=== PATIENT | female | born 1995 | race Caucasian/White ===

== ENCOUNTER 2022-11-12 14:19 | Outpatient (CLI) | payer BC ==
[2022-11-12] MEDS ORDERED: LACTATED RINGERS 1,000 ML IV ONE (14:45)
--- NOTE | 2022-11-12 15:28 | US ---
EXAMINATION TYPE: US OB BPP wo non-stress DATE OF EXAM: 11/12/2022 COMPARISON: NONE CLINICAL INDICATION: Female, 27 years old with history of nonreactive NST; nonreactive NST TECHNIQUE: Transabdominal (TA). Scoring by the burr sander during real-time assessment. FINDINGS: BPP PARAMETERS: PRESENTATION: Vertex LIE: Longitudinal?? HEART RATE: 143 bpm RHYTHM: Normal ELKE: 17.3 DIAPHRAGM IMAGED: wnl BPP SCORIN. Breathin (1 episode of breathing of 30 second duration in 30 minutes of scanning time) 2. Movement: 2 (at least 3 discrete body movements in 30 minutes) 3. Tone: 2 (1 episode of active flexion/extension of limb) 4. ELKE: 2 (ELKE index > 5cm) Single live intrauterine gestation. IMPRESSION: TOTAL SCORE: 8 / 8
[2022-11-12 17:12] VITALS: BP 132/71; PULSE 81; RESP 16; TEMP 97.4
== END 2022-11-12 15:55 | disposition home or self-care (01) ==
LOC: FBPOP 14:19
PROVIDERS: ATTEND Obstetrics & Gynecology
DX: Z36.83 Encounter for fetal screening for congenital cardiac abnormalities (principal)
CPT/HCPCS: 59025; 76819; 96360; 99214

== ENCOUNTER 2022-11-19 06:00 | Inpatient (IN) | payer BC ==
[2022-11-19] MEDS ORDERED: OXYTOCIN 10 UNIT/ML 1 ML VIAL IM PRN (06:43)
[2022-11-19] MEDS ORDERED: TERBUTALINE 1 MG/ML VIAL SQ PRN (06:43)
[2022-11-19] MEDS ORDERED: METHYLERGONOVINE 0.2 MG/ML 1 ML AMP IM PRN (06:43)
[2022-11-19] MEDS ORDERED: TRANEXAMIC 1,000 MG/100ML-NACL 1,000 MG in EMPTY BAG 1 BAG IV PRN (06:43)
[2022-11-19] MEDS ORDERED: CARBOPROST TROMETHAMINE 250 MCG/ML 1 ML AMP IM PRN (06:43)
[2022-11-19] MEDS ORDERED: LIDOCAINE 0.5% (PF) 5 MG/ML (50 ML SDV) SQ PRN (06:43)
[2022-11-19] MEDS ORDERED: miSOPROStoL 200 MCG TAB PO PRN (06:43)
[2022-11-19] MEDS ORDERED: OXYTOCIN 30 UNITS/500 ML NS 30 UNIT in SALINE 1 500ML.BAG IV SCH ×2 (06:45→17:00)
[2022-11-19] MEDS: LACTATED RINGERS 1,000 ML IV SCH ×2 (07:05→12:25)
[2022-11-19 07:13] LABS: Basophils % (A) 0 %; Eosinophils # (A) 0.1 k/uL (0-0.7); Eosinophils % (A) 1 %; HCT 35.9 % (34.0-46.0); HGB 12.8 gm/dL (11.4-16.0); Lymphocytes # (A) 2.2 k/uL (1.0-4.8); Lymphocytes % (A) 20 %; MCH 35.2 pg (25.0-35.0); MCHC 35.6 g/dL (31.0-37.0); MCV 98.9 fL (80.0-100.0); Mean Platelet Volume 8.5; Monocytes # (A) 0.4 k/uL (0-1.0); Monocytes % (A) 4 %; Neutrophils % (A) 74 %; Platelet Count 192 k/uL (150-450); RBC 3.63 m/uL (3.80-5.40); RDW 12.8 % (11.5-15.5); WBC 10.8 k/uL (3.8-10.6)
[2022-11-19] MEDS ORDERED: NALBUPHINE 10 MG/ML (10 ML MDV) IV PRN (08:50)
--- NOTE | 2022-11-19 08:55 | P.HPOB ---
History of Present Illness H&P Date: 11/19/22 Chief Complaint: 39-5/7 weeks, IUGR, induction The patient is a 27-year-old 2 para 0010 admitted at 39-5/7 weeks as established by last Mester. And confirmed by 9 week ultrasound. She is admitted for induction of labor secondary to a diagnosis of symmetric IUGR with all signs reassuring, category 1 heart rate tracing at this time. Her was initially complicated by ultrasound finding of bilateral clubbed feet and some cerebellar findings for which she was sent to maternal medicine in the cerebellar findings were dismissed but the findings of bilateral clubfeet were confirmed. She was found in the third trimester to have symmetric IUGR and was thought to have a potentially constitutionally small baby. She has undergone twice weekly testing which is been reassuring throughout. Group B strep status is negative. Obstetrical history: 2 para 0010 with 1 early loss. Current statistics are listed in history of present illness. EDC of 11/21/2022 was established by last menstrual period and confirmed by 9 week ultrasound. Laboratory workup demonstrates a blood type of O+ with a negative antibody screen. Rubella status is immune. The remainder of laboratory workup was within normal limits. One hour Glucola was normal and group B strep status is negative. Gynecologic history: Unremarkable with no history of any infections to include STDs. Review of Systems Review of systems is confined to history of present illness. Past Medical History Past Medical History: No Reported History History of Any Multi-Drug Resistant Organisms: None Reported Past Surgical History: No Surgical Hx Reported Past Anesthesia/Blood Transfusion Reactions: No Reported Reaction Past Psychological History: No Psychological Hx Reported Smoking Status: Never smoker Past Alcohol Use History: None Reported Past Drug Use History: None Reported - Past Family History Sister(s) Additional Family Medical History / Comment(s): Heart Murmer Medications and Allergies Home Medications Medication Instructions Recorded Confirmed Type No Known Home Medications 11/12/22 11/19/22 History Allergies Allergy/AdvReac Type Severity Reaction Status Date / Time No Known Allergies Allergy Verified 11/12/22 14:25 Exam Vital Signs Temp Pulse Resp BP Pulse Ox 11/19/22 06:40 97.2 F L 79 16 122/69 99 Intake and Output 11/18/22 11/19/22 11/19/22 22:59 06:59 14:59 Other: Weight 70.76 kg General, this is a well-developed, well-nourished white female in no acute distress. Her heart has a regular rhythm and rate without murmur. Her lungs clear to auscultation bilaterally in all sanchez. Her abdomen is gravid, nondistended, has normal active bowel sounds, soft, nontender, and without any palpable masses aside from uterine fundus. Her extremities are without any cyanosis, clubbing, or edema and are nontender to palpation bilaterally. Digital cervical examination demonstrates her cervix to be 2 cm dilated, 50% effaced, with the vertex in presentation at -2 station. Artificial rupture of membranes is carried out demonstrating light meconium-stained fluid. Results Result Diagrams: 11/19/22 07:00 Abnormal Lab Results - Last 24 Hours (Table) 11/19/22 Range/Units 07:00 WBC 10.8 H (3.8-10.6) k/uL RBC 3.63 L (3.80-5.40) m/uL MCH 35.2 H (25.0-35.0) pg Neutrophils # 8.0 H (1.3-7.7) k/uL Assessment and Plan (1) Term Current Visit: Yes Status: Acute Code(s): Z34.90 - ENCNTR FOR SUPRVSN OF NORMAL , UNSP, UNSP TRIMESTER SNOMED Code(s): 22498719 (2) Intrauterine growth retardation in Current Visit: Yes Status: Acute Code(s): O36.5990 - MATERN CARE FOR OTH OR SUSP POOR FETL GRTH, UNSP TRI, UNSP SNOMED Code(s): 848449423 Plan: The patient is admitted for induction of labor and Pitocin has been started. She has undergone artificial rupture of membranes. She will have close maternal and surveillance and expectant management will be practiced. She is a good candidate for either IV or epidural analgesia, whichever she may choose.
[2022-11-19] MEDS ORDERED: HYDROcodone/APAP 7.5-325MG 1 EACH TAB PO PRN (16:57)
[2022-11-19] MEDS ORDERED: ACETAMINOPHEN TAB 325 MG TAB PO PRN (16:57)
[2022-11-19] MEDS ORDERED: HYDROcodone/APAP 5-325MG 1 EACH TAB PO PRN (16:57)
[2022-11-19] MEDS ORDERED: LANOLIN CREAM 5 GM TUBE TOPICAL PRN (16:57)
[2022-11-19] MEDS ORDERED: diphenhydrAMINE 25 MG CAP PO PRN (16:57)
[2022-11-19] MEDS ORDERED: HYDROCORTISONE 2.5% RECTAL CREAM 30 GM TUBE RECTAL PRN (16:57)
[2022-11-19] MEDS ORDERED: diphenhydrAMINE 50 MG/ML 1 ML VIAL IVP PRN ×2 (16:57)
[2022-11-19] MEDS ORDERED: diphenhydrAMINE 50 MG CAP PO PRN (16:57)
[2022-11-19] MEDS ORDERED: ZOLPIDEM 5 MG TAB PO PRN (16:57)
[2022-11-19] MEDS ORDERED: SIMETHICONE 80 MG CHEWABLE PO PRN (16:57)
[2022-11-19] MEDS ORDERED: BENZOCAINE/MENTHOL SPRAY 1 GM/SPRAY AEROSOL TOPICAL PRN (16:57)
--- NOTE | 2022-11-19 17:03 | P.PROBDLV ---
Vaginal Delivery Note - . Vaginal Delivery Note: The patient is a 27-year-old 2 para 0010 admitted at 39-5/7 weeks by good dating parameters perches admitted for induction of labor with a diagnosis of intrauterine growth restriction, symmetric, with all signs reassuring, category 1 heart rate tracing on labor and delivery. She does have periods of absent variability which is been followed by accelerations. Her was complicated initially by findings at her 20 week ultrasound of bilateral clubfeet as well as some concerns with the cerebellum, possibly some heart issues and some potential renal findings. She was sent for maternal medicine consultation and the latter 3 were dispelled. She did undergo amniocentesis which demonstrated normal chromosomal findings. testing from the time of the diagnosis of IUGR was reassuring on a twice weekly basis. On labor and delivery, she had Pitocin started followed by artificial rupture of membranes for moderate meconium-stained fluid. She made progress to the active phase of labor at which time an epidural catheter was placed for analgesia. She then made steady progress throughout the active phase to complete and pushed over the course of approximately 15-20 minutes to a viable 5 lbs. 2 oz. baby girl with Apgars of 3 at 1 minute, 7 at 5 minutes, and 9 at 10 minutes. The placenta was delivered spontaneously, intact, and grossly normal although it was meconium-stained. There was extraordinarily short roughly centrally inserted three-vessel cord. There were no lacerations of the perineum, vagina, or cervix. Estimated blood loss for the case was approximately 200 mL. There were no complications. Bilateral clubfeet was in evidence. Both mother and are resting comfortably in recovery though the has been taken to the nursery secondary to the initial issues with respiration and tone.
[2022-11-19] MEDS: SENNOSIDES-DOCUSATE SODIUM 1 EACH TAB PO SCH (20:46)
[2022-11-19] MEDS: IBUPROFEN 600 MG TAB PO PRN (20:46)
[2022-11-20] MEDS: IBUPROFEN 600 MG TAB PO PRN ×3 (05:31→20:43)
[2022-11-20 06:45] LABS: Basophils # (A) 0.1 k/uL (0-0.2); Basophils % (A) 1 %; Eosinophils # (A) 0.1 k/uL (0-0.7); Eosinophils % (A) 1 %; HCT 32.4 % (34.0-46.0); HGB 11.5 gm/dL (11.4-16.0); Lymphocytes # (A) 2.2 k/uL (1.0-4.8); Lymphocytes % (A) 16 %; MCH 35.8 pg (25.0-35.0); MCHC 35.5 g/dL (31.0-37.0); Macrocytosis Slight; Mean Platelet Volume 8.6; Monocytes # (A) 0.6 k/uL (0-1.0); Monocytes % (A) 4 %; Neutrophils # (A) 10.7 k/uL (1.3-7.7); Neutrophils % (A) 78 %; Platelet Count 166 k/uL (150-450); RDW 12.9 % (11.5-15.5); WBC 13.8 k/uL (3.8-10.6)
[2022-11-20] MEDS: SENNOSIDES-DOCUSATE SODIUM 1 EACH TAB PO SCH ×2 (07:46→20:43)
--- NOTE | 2022-11-20 08:13 | P.DS ---
Providers Date of admission: 11/19/22 06:30 Expected date of discharge: 11/20/22 Attending physician: Nabil Negrete Primary care physician: Stated None - Discharge Diagnosis(es) (1) Term Current Visit: Yes Status: Acute (2) Intrauterine growth retardation in Current Visit: Yes Status: Acute (3) Normal spontaneous vaginal delivery Current Visit: Yes Status: Acute Hospital Course: The patient is a 27 year 2 para 0010 admitted at 39-5/7 weeks by good dating parameters. She is admitted for induction of labor secondary to a diagnosis of IUGR. On admission, all signs reassuring with a category 1 heart rate tracing though she has had periods of significant lack of variability on NST over the last 1-2 weeks. was initially [place] by ultrasonic findings at her anatomy ultrasound of bilateral clubfeet as well as some cerebellar changes, possible heart concerns, and possible renal concerns. The last 3 settings were dismissed by maternal medicine. She was then found in the third trimester to have the baby in the growth category of intrauterine growth restriction. She underwent twice weekly testing which was reassuring throughout the third trimester until the above lack of variability presented at approximately 38 weeks at which time she continued to have accelerations as well as biophysical profiles of 8 out of 8. Nevertheless, she was admitted for induction of labor. She had Pitocin augmentation started and underwent artificial rupture of membranes for moderate meconium-stained fluid. She progressed to the active phase and had an epidural catheter placed. She then progressed steadily through the active phase of labor to complete and pushed to a normal spontaneous vaginal delivery of a viable 5 lbs. 2 oz. baby girl with Apgars of 3 at 1 minute, 7 at 5 minutes, and 9 at 10 minutes. The patient's course was unremarkable with vital signs remaining stable and her temperature was afebrile throughout. She was deemed stable for discharge on day #1 was discharged home to follow-up in the office in 6 weeks' time routinely. Discharge instructions included calling for any significantly increased bleeding or foul-smelling lochia, significantly increased fever abdominal pain, perineal complaints, breast complaints, or anything also concerned her. She was additionally instructed to have nothing in the vagina for at least 6 weeks time to include intercourse. She understood her instructions and is agrees to follow-up as noted above. Discharge medications included only [id number] analgesic pain medications as well as continued vitamins as she has opted to breast-feed. Maternal blood type is O+ and rubella status is immune. Procedures: #1. Pitocin induction #2. Artificial rupture of membranes #3. Epidural analgesia #4. Normal spontaneous vaginal delivery Patient Condition at Discharge: Stable Plan - Discharge Summary New Discharge Prescriptions: No Action No Known Home Medications Discharge Medication List No Known Home Medications 11/12/22 [History] Follow up Appointment(s)/Referral(s): Nabil Negrete MD [STAFF PHYSICIAN] - 6 Weeks Discharge Disposition: HOME SELF-CARE
[2022-11-20 11:11] VITALS: RESP 16
[2022-11-21 08:59] VITALS: BP 131/78; PULSE 59; TEMP 98
== END 2022-11-21 15:45 | disposition home or self-care (01) | DRG 807 ==
LOC: 4FBP 06:30
PROVIDERS: ADMIT Obstetrics & Gynecology; ATTEND Obstetrics & Gynecology
PROC: 3E033VJ Introduction of Other Hormone into Peripheral Vein, Percutaneous Approach (ICD-10-PCS; principal; 2022-11-19)
PROC: 3E0DXGC Introduction of Other Therapeutic Substance into Mouth and Pharynx, External Approach (ICD-10-PCS; principal; 2022-11-19)
PROC: 10E0XZZ Delivery of Products of Conception, External Approach (ICD-10-PCS; principal; 2022-11-19)
PROC: 10907ZC Drainage of Amniotic Fluid, Therapeutic from Products of Conception, Via Natural or Artificial Opening (ICD-10-PCS; principal; 2022-11-19)
DX: O36.5930 Maternal care for other known or suspected poor fetal growth, third trimester, not applicable or unspecified (principal); O35.HXX0 Maternal care for other (suspected) fetal abnormality and damage, fetal lower extremities anomalies, not applicable or unspecified; O77.0 Labor and delivery complicated by meconium in amniotic fluid; O69.3XX0 Labor and delivery complicated by short cord, not applicable or unspecified; O76 Abnormality in fetal heart rate and rhythm complicating labor and delivery; Z28.310 Unvaccinated for COVID-19; Z3A.39 39 weeks gestation of pregnancy; Z37.0 Single live birth
CPT/HCPCS: 85025; 86850; 86900; 86901